=== PATIENT | female | born 1955 | race Caucasian/White ===

== ENCOUNTER 2017-12-18 21:17 | Emergency (ER) | payer OTHER ==
[~2017-12-18] VITALS: Ht 172.7 cm; Wt 64.0 kg
[2017-12-18] MEDS ORDERED: SODIUM CHLORIDE 0.9% 1,000 ML IV ONE (22:41)
[2017-12-18] MEDS ORDERED: LORAZEPAM 2MG/ML CPJ IV STA (22:41)
[2017-12-18] MEDS ORDERED: TETANUS, DIPHTHERIA, PERTUSSIS VAC/PF 0.5ML (>7YR OLD) IM ONE (22:45)
[2017-12-18] MEDS ORDERED: LIDOCAINE HCL 1% 20ML VIAL (Pyxis) INJ MC ONE (22:45)
[2017-12-18 22:58] LABS: BASOPHILS % 0.6 % (0.0-2.0); EOSINOPHILS % 0.7 % (0.0-5.0); HEMATOCRIT. 37.3 % (36.0-48.0); HEMOGLOBIN. 13.1 g/dL (12.0-16.0); LYMPHOCYTES % 28.6 % (20.0-50.0); MEAN CORPUSCULAR HEMOGLOBIN 31.3 pg (28.0-32.0); MEAN CORPUSCULAR VOLUME 89.2 fL (81.0-99.0); MEAN PLATELET VOLUME 8.3 fl (7.4-10.4); MONOCYTES % 5.3 % (2.0-8.0); NEUTROPHILS % 64.8 % (40.0-76.0); PLATELET 244 x1000/uL (130-400); RED BLOOD CELL COUNT 4.18 mill/uL (4.2-5.4); RED CELL DISTRIBUTION WIDTH 13.1 % (11.6-14.6)
[2017-12-18 23:02] LABS: CHLORIDE 110 mEq/L (98-107)
[2017-12-18 23:06] LABS: ETHANOL BLOOD 263 mg/dL
[2017-12-18] MEDS ORDERED: LIDOCAINE HCL/PF 1% 10 MG/ML 5ML VIAL IJ SCH (23:30)
[2017-12-19 00:10] LABS: CLARITY URINE CLEAR (CLEAR); COLOR URINE YELLOW (YELLOW); KETONES URINE NEGATIVE (NEGATIVE); LEUKOCYTE ESTERASE URINE 2+ (NEGATIVE); NITRITE URINE NEGATIVE (NEGATIVE); OCCULT BLOOD URINE 3+ (NEGATIVE); PH URINE 5.5 (4.5-8.0); PROTEIN URINE NEGATIVE (NEGATIVE); SPECIFIC GRAVITY URINE 1.009 (1.005-1.030); UROBILINOGEN URINE 0.2 E.U./dL (0.2-1.0)
[2017-12-19 00:23] LABS: *AMPHETAMINES SCREEN URINE NEGATIVE (NEGATIVE); *BARBITURATES SCREEN URINE NEGATIVE (NEGATIVE); *BENZODIAZEPINES SCREEN URINE NEGATIVE (NEGATIVE); *COCAINE SCREEN URINE NEGATIVE (NEGATIVE); METHADONE URINE SCREEN NEGATIVE (NEGATIVE); OPIATES URINE SCREEN NEGATIVE (NEGATIVE)
[2017-12-19 00:24] LABS: CANNABINOID URINE SCREEN NEGATIVE (NEGATIVE); PHENCYCLIDINE URINE SCREEN NEGATIVE (NEGATIVE)
[2017-12-19] MEDS ORDERED: POTASSIUM CHLORIDE 20MEQ TABLET SR PO SCH (00:30)
[2017-12-19] MEDS ORDERED: BACITRACIN ZINC OINT UDPKT TOP ONE (00:30)
[2017-12-19] MEDS ORDERED: CEPHALEXIN 500MG CAPSULE PO SCH (01:00)
[2017-12-19] MEDS ORDERED: ACETAMINOPHEN 325MG TABLET PO ONE (08:45)
[2017-12-19] MEDS ORDERED: HYDROCODONE/ACETAMINOPHEN 5/325MG TABLET PO ONE (16:15)
[2017-12-19 18:14] VITALS: BP 143/82
== END 2017-12-19 18:25 ==
LOC: ER 21:25
DX: S51.812A Laceration without foreign body of left forearm, initial encounter (principal); T14.91XA Suicide attempt, initial encounter; F10.129 Alcohol abuse with intoxication, unspecified; N39.0 Urinary tract infection, site not specified; E87.6 Hypokalemia; F32.9 Major depressive disorder, single episode, unspecified; F17.200 Nicotine dependence, unspecified, uncomplicated; Z98.890 Other specified postprocedural states; X78.1XXA Intentional self-harm by knife, initial encounter; Y93.89 Activity, other specified; Y92.89 Other specified places as the place of occurrence of the external cause; Y99.8 Other external cause status
CPT/HCPCS: 12002; 36415; 80053; 80305; 81003; 81025; 85025; 90471; 90715; 96374; 99285; G0482; J2060; J3490; J7030; X7700; Z7610